=== PATIENT | male | born 1975 | race Caucasian/White ===

== ENCOUNTER 2020-03-17 09:19 | Emergency (ER) | payer MEDICAID ==
[~2020-03-17] VITALS: Ht 175.3 cm; Wt 82.7 kg
[2020-03-17 09:53] VITALS: BP 130/96; Ht 175.3 cm; Wt 82.7 kg
[2020-03-17] MEDS ORDERED: NORVASC5 MG PO (09:59)
[2020-03-17] MEDS ORDERED: ERYTHROMYCIN OPT1 GM LEFT EYE (10:49)
[2020-03-17] MEDS ORDERED: KEFLEX500 MG PO (10:49)
== END 2020-03-17 11:03 | disposition home or self-care (01) ==
LOC: D.ER 09:19
DX: H10.9 Unspecified conjunctivitis (principal); I10 Essential (primary) hypertension; Z72.0 Tobacco use